=== PATIENT | female | born 1990 | race African-American/Black ===

== ENCOUNTER 2022-06-06 16:26 | Emergency (ER) | payer SELFPAY ==
[~2022-06-06] VITALS: Ht 170.2 cm; Wt 70.0 kg
[2022-06-06] MEDS ORDERED: IBUPROFEN 800MG TABLET PO ONE (17:00)
[2022-06-06] MEDS ORDERED: IBUP-2029 MT (17:58)
[2022-06-06 18:12] VITALS: BP 121/71
== END 2022-06-06 18:13 | disposition home or self-care (01) ==
LOC: ER 16:26
DX: S80.02XA Contusion of left knee, initial encounter (principal); S80.01XA Contusion of right knee, initial encounter; V43.52XA Car driver injured in collision with other type car in traffic accident, initial encounter; Y93.89 Activity, other specified; Y92.410 Unspecified street and highway as the place of occurrence of the external cause
CPT/HCPCS: 73562; 81025; 99283